=== PATIENT | male | born 1965 | race African-American/Black ===

== ENCOUNTER 2025-02-21 05:52 | Inpatient (IN) | payer OTHER ==
[2025-02-21] VITALS (7 sets, daily range): BP systolic 126–141; BP diastolic 82–93; PULSE 60–81; RESP 12–19; TEMP 97.7–99.3; O2SAT 96–98
[~2025-02-21] VITALS: Ht 185.4 cm; Wt 110.2 kg
[~2025-02-21 05:52] MED LIST: CRESTOR40 MG; IRBESARTAN-HCT1 EAC1; METOPROLOL SUCC50 MG PO; NIFEDIPINE10 MG PO; OZEMPIC2 MG/0.75
[2025-02-21] MEDS: SODIUM CHLORIDE 0.9% 1000ML 1,000 ML ONE (06:40)
[2025-02-21] MEDS: GENTAMICIN 80MG/NS 100 ML 200 ML IV ONE (06:41)
[2025-02-21 06:56] LABS: BASOPHILS % 0.5 % (0.0-1.0); EOSINOPHILS % 2.1 % (0.0-6.0); LYMPHOCYTES % 41.1 % (18.0-39.1); MONOCYTES % 8.1 % (4.4-11.3); NEUTROPHILS % 48.0 % (38.7-80.0); RED CELL DISTRIBUTION WIDTH 13.3 % (11.7-14.4)
[2025-02-21] MEDS ORDERED: PROPOFOL IV EMULSION 10 MG/ML 20 ML VIAL ONE (07:06)
[2025-02-21] MEDS ORDERED: LIDOCAINE HCL 2% LOCAL INJ 5 ML SDV VIAL INJ ONE (07:06)
[2025-02-21 07:37] LABS: EST GLOMERULAR FILTRATION RATE 77.0 ML/MIN (>=60)
[2025-02-21] MEDS ORDERED: FENTANYL CITRATE/PF 100MCG/2 ML INJ ONE ×2 (09:11→10:37)
[2025-02-21] MEDS ORDERED: ROCURONIUM BROMIDE 1 ML IV ONE (09:11)
[2025-02-21] MEDS ORDERED: SEVOFLURANE INHAL SOLN 250 ML PEN BTL ONE (09:23)
[2025-02-21] MEDS ORDERED: ACETAMINOPHEN 1000 MG/100 ML 100 ML IV ONE (09:23)
[2025-02-21] MEDS ORDERED: ONDANSETRON HCL INJ 2MG/ML 2ML 2 MG/ML VIAL ONE (09:24)
[2025-02-21] MEDS ORDERED: DEXAMETHASONE SOD PHOS INJ 4 MG/ML SDV ONE (09:24)
[2025-02-21] MEDS ORDERED: EPHEDRINE SULFATE INJ 50 MG/ML VIAL ONE (09:30)
[2025-02-21] MEDS ORDERED: SUGAMMADEX SODIUM 200 MG/2 ML VIAL IV ONE ×2 (10:30→10:35)
[2025-02-21] MEDS ORDERED: ACETAMINOPHEN 1000 MG/100 ML IV PRN (11:15)
[2025-02-21] MEDS ORDERED: ONDANSETRON HCL INJ 2MG/ML 2ML 2 MG/ML VIAL IV PRN (11:15)
[2025-02-21] MEDS ORDERED: DIPHENHYDRAMINE HCL 25 MG CAP PO PRN (11:15)
[2025-02-21 12:20] LABS: BASOPHILS % 0.3 % (0.0-1.0); EOSINOPHILS % 0.3 % (0.0-6.0); LYMPHOCYTES % 13.1 % (18.0-39.1); MONOCYTES % 2.8 % (4.4-11.3); NEUTROPHILS % 83.0 % (38.7-80.0); RED CELL DISTRIBUTION WIDTH 13.4 % (11.7-14.4)
[2025-02-21 12:47] LABS: EST GLOMERULAR FILTRATION RATE 65.0 ML/MIN (>=60)
[2025-02-21] MEDS: CEFTRIAXONE 1 GM VIAL ONE (12:49)
[2025-02-21] MEDS: PHENAZOPYRIDINE HCL 100 MG TAB PO PRN (13:07)
[2025-02-21] MEDS: ACETAMINOPHEN/CODEINE 300MG - 30MG TAB PO PRN (13:07)
[2025-02-21] MEDS: SODIUM CHLORIDE 0.9% 1000ML 1,000 ML IV SCH (13:08)
[2025-02-21] MEDS: SENNA-S TABLET PO SCH (17:38)
[2025-02-22] VITALS (10 sets, daily range): BP systolic 111–168; BP diastolic 79–89; PULSE 75–85; RESP 18–20; TEMP 97.7–98.7; O2SAT 96–100
[2025-02-22 05:47] LABS: BASOPHILS % 0.2 % (0.0-1.0); EOSINOPHILS % 0.6 % (0.0-6.0); LYMPHOCYTES % 31.3 % (18.0-39.1); MONOCYTES % 4.4 % (4.4-11.3); NEUTROPHILS % 63.2 % (38.7-80.0); RED CELL DISTRIBUTION WIDTH 13.6 % (11.7-14.4)
[2025-02-22] MEDS: CEFTRIAXONE 2 GM in SODIUM CHLORIDE 0.9% 100 ML IV SCH (05:47)
[2025-02-22 06:12] LABS: EST GLOMERULAR FILTRATION RATE 76.0 ML/MIN (>=60)
[2025-02-22] MEDS ORDERED: HYDRALAZINE HCL 20 MG/ML VIAL IV PRN (09:15)
[2025-02-22] MEDS: NIFEDIPINE CR 30 MG TAB PO SCH (11:27)
[2025-02-22] MEDS: METOPROLOL SUCCINATE 50 MG TAB XL PO SCH (20:42)
[2025-02-23] VITALS (10 sets, daily range): BP systolic 116–145; BP diastolic 73–90; PULSE 66–86; RESP 18; TEMP 97.8–98.4; O2SAT 95–100
[2025-02-23 07:23] LABS: BASOPHILS % 0.6 % (0.0-1.0); EOSINOPHILS % 1.1 % (0.0-6.0); LYMPHOCYTES % 46.9 % (18.0-39.1); MONOCYTES % 8.7 % (4.4-11.3); NEUTROPHILS % 42.3 % (38.7-80.0); RED CELL DISTRIBUTION WIDTH 13.9 % (11.7-14.4)
[2025-02-23 07:33] LABS: EST GLOMERULAR FILTRATION RATE 87.0 ML/MIN (>=60)
[2025-02-24] VITALS (9 sets, daily range): BP systolic 130–141; BP diastolic 86–91; PULSE 66–84; RESP 18–20; TEMP 98–98.9; O2SAT 95–99
[2025-02-24 05:57] LABS: BASOPHILS % 0.8 % (0.0-1.0); EOSINOPHILS % 2.1 % (0.0-6.0); LYMPHOCYTES % 47.4 % (18.0-39.1); MONOCYTES % 10.1 % (4.4-11.3); NEUTROPHILS % 39.0 % (38.7-80.0); RED CELL DISTRIBUTION WIDTH 13.7 % (11.7-14.4)
[2025-02-24 06:18] LABS: EST GLOMERULAR FILTRATION RATE 95.0 ML/MIN (>=60)
[2025-02-25] VITALS (9 sets, daily range): BP systolic 138–160; BP diastolic 79–95; PULSE 67–92; RESP 18–20; TEMP 97.7–98.7; O2SAT 96–99
[2025-02-25 05:53] LABS: BASOPHILS % 0.6 % (0.0-1.0); EOSINOPHILS % 1.7 % (0.0-6.0); LYMPHOCYTES % 38.1 % (18.0-39.1); MONOCYTES % 7.3 % (4.4-11.3); NEUTROPHILS % 51.9 % (38.7-80.0); RED CELL DISTRIBUTION WIDTH 13.7 % (11.7-14.4)
[2025-02-25 06:18] LABS: EST GLOMERULAR FILTRATION RATE 108.0 ML/MIN (>=60)
[2025-02-26] VITALS (10 sets, daily range): BP systolic 137–158; BP diastolic 93–103; PULSE 64–77; RESP 18; TEMP 97.7–98.6; O2SAT 93–100
[2025-02-27 03:33] VITALS: BP 144/94; PULSE 73; RESP 18; TEMP 98.1; O2SAT 100
[2025-02-27 07:38] VITALS: PULSE 75; RESP 18; O2SAT 96
[2025-02-27 08:14] VITALS: BP 142/90; PULSE 75; RESP 18; TEMP 98.7; O2SAT 98
[2025-02-27 09:00] VITALS: BP 142/90; PULSE 75; RESP 18; TEMP 98.7; O2SAT 98
[2025-02-27] MEDS: TADALAFIL 10 MG PO SCH (09:00)
[2025-02-27] MEDS ORDERED: ONDANSETRON HCL 4 MG ORAL DISINTEGRATING TAB PO PRN (11:30)
[2025-02-27 12:03] VITALS: BP 130/85; PULSE 70; RESP 18; TEMP 98.4; O2SAT 98
== END 2025-02-27 13:35 | disposition home or self-care (01) | DRG 713 ==
LOC: OR 05:52 → PACU V 11:40 → MED/SURG2 12:38
PROVIDERS: ADMIT Urology; ATTEND Urology
PROC: 0VT08ZZ Resection of Prostate, Via Natural or Artificial Opening Endoscopic (ICD-10-PCS; principal; 2025-02-21 09:11)
DX: N40.1 Benign prostatic hyperplasia with lower urinary tract symptoms (principal); D62 Acute posthemorrhagic anemia; N13.8 Other obstructive and reflux uropathy; N99.89 Other postprocedural complications and disorders of genitourinary system; Y83.8 Other surgical procedures as the cause of abnormal reaction of the patient, or of later complication, without mention of misadventure at the time of the procedure; R33.8 Other retention of urine; R30.0 Dysuria; R31.0 Gross hematuria; I10 Essential (primary) hypertension; E78.5 Hyperlipidemia, unspecified; E66.9 Obesity, unspecified; I16.0 Hypertensive urgency; R97.20 Elevated prostate specific antigen [PSA]; N32.89 Other specified disorders of bladder
CPT/HCPCS: 36415; 74420; 80048; 83735; 85025; 88305; 93005; 94799; C1758; J0696; J1100; J1580; J2003; J2405; J7030; J7050